=== PATIENT | male | born 1980 | race Caucasian/White ===

== ENCOUNTER → 2018-11-04 | Outpatient (CLI) | payer OTHER ==
--- NOTE | 2018-11-04 16:59 | PCVCIMAG ---
APPROVED REPORT Study performed: 11/04/2018 16:03:12 EXAM: Comprehensive 2D, Doppler, and color-flow Echocardiogram Patient Location: Echo lab Room #: 2Status: routine BSA: 2.24 HR: 104 bpmBP: 110/88 mmHg Rhythm: NSR,Tachycardia Other Information Study Quality: Adequate Risk Factors: Cardiac Risk Factors: Smoking, Hyperlipidemia Indications Abnormal ECG Dyspnea Tachycardia 2D Dimensions IVSd: 14.29 (7-11mm)LVOT Diam: 22.23 (18-24mm) LVDd: 45.53 mm PWd: 11.54 (7-11mm)Ascending Ao: 26.48 (22-36mm) LVDs: 29.49 (25-40mm) Left Atrium: 33.53 (27-40mm) Aortic Root: 25.65 mm LV Single Plane 4CH: 55.16 % LV Single Plane 2CH: 55.74 % Biplane EF: 54.1 % Volumes Left Atrial Volume (Systole) Single Plane 4CH: 22.23 mLSingle Plane 2CH: 35.54 mL Biplane LA Volume: 29.00 mLLA ESV Index: 13.00 mL/m2 Aortic Valve AoV Peak Dajuan.: 1.65 m/s AO Peak Gr.: 10.84 mmHgLVOT Max P.09 mmHg LVOT Max V: 0.99 m/s STUART Vmax: 2.34 cm2 Mitral Valve E/A Ratio: 0.9 MV Decel. Time: 126.27 ms MV E Max Dajuan.: 0.70 m/s MV A Dajuan.: 0.75 m/s IVRT: 65.74 ms TDI E/Lateral E': 5.83E/Medial E': 8.75 Medial E' Dajuan.: 0.08 m/s Lateral E' Dajuan.: 0.12 m/s Pulmonary Valve PV Peak Dajuan.: 1.07 m/sPV Peak Gr.: 4.56 mmHg Pulmonary Vein P Vein S: 0.70 m/sP Vein A: 0.32 m/s P Vein D: 0.51 m/sP Vein A Dur.: 55.4 msec P Vein S/D Ratio: 1.37 Tricuspid Valve TV Vmax: 0.61 m/s Left Ventricle The left ventricle is normal size. There is normal LV segmental wall motion. Mild to moderate concentric left ventricular hypertrophy. There is no ventricular septal defect visualized. Left ventricular systolic function is normal. The left ventricular ejection fraction is within the normal range. LVEF 55%. The left ventricular diastolic function is normal. Right Ventricle The right ventricle is normal size. The right ventricular systolic function is normal. Atria The left atrium size is normal. The right atrium size is normal. Aortic Valve Aortic valve is trileaflet. The aortic valve is normal in structure and function. No aortic regurgitation is present. There is no aortic valvular stenosis. Mitral Valve The mitral valve is normal in structure. There is no mitral valve regurgitation noted. No evidence of mitral valve stenosis. Tricuspid Valve The tricuspid valve is normal in structure. Unable to assess PA pressure due to a lack of tricuspid regurgitation. No pulmonary hypertension. Pulmonic Valve The pulmonary valve is normal in structure. There is no pulmonic valvular regurgitation. Great Vessels The aortic root is normal in size. The ascending aorta is normal in size. Aortic arch is normal in caliber. IVC is normal in size and collapses >50% with inspiration. Pericardium There is no pericardial effusion. There is no pleural effusion. <Conclusion> Left ventricular systolic function is normal. There is normal LV segmental wall motion. LVEF 55%. Normal diastolic function Aortic valve is trileaflet. No aortic regurgitation or stenosis The mitral valve is normal in structure. No mitral valve regurgitation. Pulmonary artery pressure could not be reliably ascertained There is no pericardial effusion.
== END | disposition home or self-care (01) ==
LOC: PCVCIMAG 08:00
PROVIDERS: ATTEND Internal Medicine
DX: R94.31 Abnormal electrocardiogram [ECG] [EKG] (principal); R06.00 Dyspnea, unspecified; I47.1 Supraventricular tachycardia
CPT/HCPCS: 93306